=== PATIENT | female | born 1975 | race Caucasian/White ===

== ENCOUNTER 2024-06-16 18:00 | Emergency (ER) | payer BC, SELFPAY ==
[2024-06-16 18:01] VITALS: BP 137/103; PULSE 97; RESP 16; TEMP 36.6; O2SAT 100; BMI 21.1
--- NOTE | 2024-06-16 18:23 | EX.ED.UPPERE ---
HPI History of Present Illness Chief Complaint: Upper Extremity Injury Informant: patient Narrative Narrative: Patient is a 49-year-old female [id number] presenting with left hand injury. Patient states yesterday she was carrying the groceries and when the groceries hit the door to shot it but her left hand was still on the outside and got slammed in the door. This was an exterior door. She is complaining of pain, bruising and swelling of the lateral aspect of her left hand. No other injuries. Did not take anything for pain prior to arrival. No other complaints or concerns reported. Does not have insurance. Patient states she recently just got insurance and also moved here from [place]. PFSH PFSH Allergy/AdvReac Type Severity Reaction Status Date / Time No Known Allergies Allergy Verified 06/16/24 18:01 ROS ROS ED Constitutional Constitutional ED: Denies chills or fever(s) Musculoskeletal Musculoskeletal: Reports other Details: Left hand pain Integumentary Reports other Details: Bruising to the left hand Neurologic Neurologic: Denies paresthesias or weakness Hematologic/Lymphatic Hematologic/Lymphatic: Denies easy bleeding or easy bruising EXAM Physical Exam Const Vital Signs: 06/16/24 18:01 Temperature 97.9 F Temperature Source Temporal Pulse Rate 97 Respiratory Rate 16 Blood Pressure 137/103 H Blood Pressure Mean 114 Pulse Ox 100 Oxygen Delivery Method Room Air Positive well nourished and well developed General Appearance ED: well developed and NAD HEENT normocephalic Neck full ROM Chest Wall inspection of chest normal and palpation of chest normal Resp normal respiratory effort and clear to auscultation bilaterally Cardio regular rate and regular rhythm Cardio Narrative: 2+ radial pulses present. Extremity Extremity Narrative: No obvious deformity of the hand on the left but there is some soft tissue swelling. No tenderness over the wrist with normal range of motion. Normal range of motion of the fingers. No tenderness over the MCPs however patient does have tenderness over the fourth and fifth metacarpals. There is some associated bruising to the area. No tenting of the skin appreciated. Neuro oriented x3, moves all extremities and no focal motor deficits Psych mental status grossly normal Skin Lesions: no lesions Rashes: no rashes MDM MDM MDM Narrative Medical decision making narrative: Patient evaluated for left hand pain after injury yesterday. She states her hand was closed in her front door while bringing the groceries. Differential includes hand contusion, metacarpal fracture, metacarpal dislocation. X-ray obtained which reviewed by myself does show a minimally displaced left fifth metacarpal fracture at the midshaft. Patient placed in an ulnar gutter splint. Patient declined any opioid pain medication and does not want any medication in the ER as she will get billed for it. Patient instructed to take NSAIDs and Tylenol at home as needed for pain. Counseled on icing. Given return precautions. Given outpatient Ortho referral. Counseled on splint care as well. Case discussed with orthopedics, Dr. Lind who is agreeable with this plan. Radiography Diagnostic Testing: Diagnostic Data Hand X-Ray 06/16/24 18:24 IMPRESSION: Acute oblique fracture involving the mid shaft, 5th metacarpal. Reading Location: [facility] Procedures Upper Extremity Splints Upper Extremity Splint: Orthoglass and Ulnar gutter Splint Fabrication: Fabricated Location: Left Discharge Plan Triage Chief Complaint: Upper Extremity Injury ED Provider: Germaine Powell Dx/Rx/DC Orders Clinical Impression: Fracture of fifth metacarpal bone of left hand Instructions: ED Boxer Fracture Stand Alone Forms: ED Work / School Excuse Primary Care Provider: Care Physician,No Primary Referrals: [facility] [Provider Group] Sai Lind MD [Med Staff - Active Staff] - Activity Restrictions/Additional Instructions: Please follow-up with orthopedics. Alternate ibuprofen and Tylenol for pain. Elevate your hand and ice through the splint. Do not get the splint wet. Print Language: Croatian Disposition Disposition: Home, Self Care
--- NOTE | 2024-06-16 18:24 | RAD_ITS ---
PROCEDURE: HAND MIN 3 VIEWS REASON FOR EXAM: Shut hand in door. Pain 5th metacarpal. TECHNIQUE: 3 view(s) of the left hand COMPARISON: No relevant prior. FINDINGS: Oblique hairline undisplaced fracture through the mid shaft of the 5th metacarpal. No dislocations or subluxations. Mild soft tissue swelling RAD/Hand Min 3 Views IMPRESSION: Acute oblique fracture involving the mid shaft, 5th metacarpal. Reading Location: [facility]
[2024-06-16 19:19] VITALS: BP 137/103; PULSE 97; RESP 16; TEMP 36.6; O2SAT 100
== END 2024-06-16 19:22 | disposition home or self-care (01) ==
PROVIDERS: Emergency Provider Emergency Medicine; Visit Provider Emergency Medicine
DX: S62.327A Displaced fracture of shaft of fifth metacarpal bone, left hand, initial encounter for closed fracture (principal); W23.2XXA Caught, crushed, jammed or pinched between a moving and stationary object, initial encounter
CPT/HCPCS: 29125; 73130; 99282

== ENCOUNTER 2024-08-20 10:24 | Emergency (ER) | payer BC, SELFPAY ==
[2024-08-20 10:25] VITALS: BP 163/104; PULSE 105; RESP 16; TEMP 36.3; O2SAT 99; BMI 21.2
--- NOTE | 2024-08-20 10:34 | EX.ED.DYSGE1 ---
HPI History of Present Illness Chief Complaint: Rash Informant: patient Onset/Context/Timing Onset: Yesterday Context: Gradual Onset Timing: Continuous Quality: Redness, itching, aching Location: Right wrist and distal forearm Worsened by: Nothing Relieved by: Nothing Narrative Narrative: Patient presents with redness and itching to her right forearm that began yesterday. Patient is gradually getting worse. Patient admits to some redness and warmth over the volar aspect of her wrist and distal forearm. Patient states she went to the pharmacy to get some Benadryl cream and the pharmacist told her that it could be cellulitis. Patient denies any fevers or chills. Patient denies any discharge or drainage. Patient denies any paresthesias or weakness. Patient denies any new exposures. PFSH PFSH Home Medications ?Medication ?Instructions ?Recorded ?Last Taken ?Type cephalexin 500 mg capsule 500 mg PO Q6 #40 CAPSULES 08/20/24 Unknown Rx Allergy/AdvReac Type Severity Reaction Status Date / Time No Known Allergies Allergy Verified 08/20/24 10:25 Surgical History (Updated 08/20/24 @ 10:[address] Brooks Santos DO) S/P ORIF (open reduction internal fixation) fracture Hx of tubal ligation Social History (Updated 08/20/24 @ 10:[address] Brooks Santos DO) Smoking Status: Current every day smoker tobacco type: cigarettes ROS ROS ED Constitutional Constitutional ED: Denies chills or fever(s) Eyes Eyes: Denies blurry vision or change in vision ENT ENT ED: Denies rhinorrhea or sore throat Cardiovascular Cardiovascular: Denies chest pain or palpitations Respiratory/Chest Respiratory/Chest: Denies cough or dyspnea Gastrointestinal Gastrointestinal: Denies nausea or vomiting Genitourinary Genitourinary ED: Denies dysuria or hematuria Musculoskeletal Musculoskeletal: Denies back pain or neck pain Integumentary Reports rash; Denies abscess Neurologic Neurologic: Denies headache(s) or weakness Allergic/Immunologic Allergic/Immunologic ED: Denies mouth swelling or urticaria EXAM Physical Exam Const Vital Signs: 08/20/24 10:25 Temperature 97.4 F L Temperature Source Oral Pulse Rate 105 H Respiratory Rate 16 Blood Pressure 163/104 H Blood Pressure Mean 123 Pulse Ox 99 Oxygen Delivery Method Room Air Positive well nourished and well developed Constitutional Narrative: BMI is 21.3 General Appearance ED: well developed and NAD HEENT Reports moist mucous membranes Neck supple and no JVD Extremity Extremity Narrative: There is some erythema and warmth over the volar aspect of the right distal forearm and wrist area. There are no vesicles or pustules noted. There is no discharge or drainage. There is no fluctuance or induration. Radial pulses are equal bilaterally. Sensation was intact to light touch in the radial, median, and ulnar areas. Strength is 5/5 in the radial, median, and ulnar areas. Neuro oriented x3, CN's II-XII intact bilaterally and no sensory deficits noted Sensorium / Orientation: alert Motor Exam: strength 5/5 throughout Psych mental status grossly normal MDM MDM MDM Narrative Medical decision making narrative: Patient was advised that this could be a cellulitis. Patient was given a prescription for Keflex. Patient was given her first dose here. Patient was instructed to use Benadryl or hydrocortisone cream as needed for any itching. Patient was instructed to follow-up with her primary care physician in 5 to 7 days. Patient understood and was agreeable with the plan. All questions were answered. Discharge Plan Triage Chief Complaint: Rash ED Provider: Brooks Santos Dx/Rx/DC Orders Clinical Impression: Cellulitis of right forearm, Tobacco use Instructions: ED Cellulitis Prescriptions: New cephalexin 500 mg capsule 500 mg PO Q6 Qty: 40 0RF Primary Care Provider: Care Physician,No Primary Referrals: Kelin Ramirez MD [Med Staff - Block Machine Operator] - 5-7 Days Care Physician,No Primary [Primary Care Provider] - Print Language: Turkish Disposition Disposition: Home, Self Care
[2024-08-20] MEDS: Cephalexin 500 MG Capsule PO (10:43)
== END 2024-08-20 10:45 | disposition home or self-care (01) ==
LOC: ED 10:40
PROVIDERS: Emergency Provider Emergency Medicine; Visit Provider Emergency Medicine
DX: L03.113 Cellulitis of right upper limb (principal); F17.210 Nicotine dependence, cigarettes, uncomplicated
CPT/HCPCS: 99282

== ENCOUNTER 2024-09-21 05:37 | Emergency (ER) | payer BC, SELFPAY ==
[2024-09-21 05:38] VITALS: BP 141/91; PULSE 103; RESP 18; TEMP 36.5; O2SAT 100
--- NOTE | 2024-09-21 05:52 | EX.ED.DYSGE1 ---
HPI History of Present Illness Chief Complaint: Sore Throat Informant: patient Narrative Narrative: Patient is a 49-year-old female who reports no significant past medical history. She states over the last 24 hours she has noticed sore throat. She states that it is painful to swallow but she is able to do so. She denies any change in voice cough or congestion. She denies any known sick contact. However she is concerned she may have developed strep throat as the cause of her throat soreness and therefore comes in for evaluation PFS PFS no medical history Home Medications ?Medication ?Instructions ?Recorded ?Last Taken ?Type amoxicillin 875 mg-potassium 1 tab PO BID 10 days #20 tabs 09/21/24 Unknown Rx clavulanate 125 mg tablet prednisone 20 mg tablet 40 mg (2 x 20 mg) PO DAILY 5 days 09/21/24 Unknown Rx #10 tabs Allergy/AdvReac Type Severity Reaction Status Date / Time No Known Allergies Allergy Verified 09/21/24 05:38 Surgical History S/P ORIF (open reduction internal fixation) fracture Hx of tubal ligation Social History Smoking Status: Current every day smoker tobacco type: cigarettes and e-cigarettes ROS ROS ED Constitutional Constitutional ED: Denies chills or fever(s) Eyes Eyes: Denies change in vision ENT ENT ED: Reports sore throat; Denies rhinorrhea Cardiovascular Cardiovascular: Denies chest pain Respiratory/Chest Respiratory/Chest: Denies cough or dyspnea Gastrointestinal Gastrointestinal: Denies abdominal pain, diarrhea, nausea or vomiting Genitourinary Genitourinary ED: Denies dysuria Musculoskeletal Musculoskeletal: Reports neck pain; Denies myalgias Integumentary Denies rash Neurologic Neurologic: Denies headache(s) Hematologic/Lymphatic Hematologic/Lymphatic: Denies easy bleeding or easy bruising Allergic/Immunologic Allergic/Immunologic ED: Denies mouth swelling or tongue swelling EXAM Physical Exam Const Vital Signs: 09/21/24 05:38 09/21/24 05:59 Temperature 97.7 F L 97.7 F L Temperature Source Oral Pulse Rate 103 H 93 Respiratory Rate 18 18 Blood Pressure 141/91 H 120/98 H Blood Pressure Mean 107 105 Pulse Ox 100 100 Oxygen Delivery Method Room Air Positive well nourished and well developed General Appearance ED: well developed; Negative for pallor HEENT HEENT Narrative: No tongue or lip swelling noted Posterior pharynx displays diffuse erythema with scant exudates but no tonsillar hypertrophy or hard palate petechiae. No trismus change in voice or difficulty with secretions Eyes PERRL and EOMs intact bilaterally Neck supple Neck Narrative: Positive anterior cervical adenopathy which is tender to palpation Resp normal respiratory effort and clear to auscultation bilaterally Cardio regular rate and regular rhythm Extremity normal to inspection Neuro oriented x3, CN's II-XII intact bilaterally and no sensory deficits noted Sensorium / Orientation: alert Motor Exam: strength 5/5 throughout Psych mental status grossly normal Skin no rashes or lesions noted and no wounds General Skin Exam: Negative for jaundice or pallor MDM MDM MDM Narrative Medical decision making narrative: Patient presented to the ER hypertensive but otherwise afebrile with stable vital. She reported sore throat without URI symptoms such as congestion drainage or cough. A rapid strep swab was obtained secondary to concern for viral versus bacterial pharyngitis. By exam there are no findings to suggest peritonsillar abscess or retropharyngeal abscess or epiglottitis. And therefore I felt no need for imaging studies. Patient is 3 out of 4 positive on the [facility] criteria. Therefore at this time I will start her on antibiotics and steroids secondary to high likelihood for bacterial pharyngitis. As she does not have signs of systemic infection abscess or airway compromise there is no need for further intervention and she is otherwise safe for discharge History & Record Review Discussion w/independent historian: Patient Discharge Plan Triage Chief Complaint: Sore Throat ED Provider: Eddi Tony Dx/Rx/DC Orders Clinical Impression: Pharyngitis Instructions: ED Pharyngitis, Report Pending Prescriptions: New prednisone 20 mg tablet 40 mg PO DAILY 5 Days Qty: 10 0RF amoxicillin-pot clavulanate 875-125 mg tablet 1 tab PO BID 10 Days Qty: 20 0RF Stand Alone Forms: ED Work / School Excuse Primary Care Provider: Care Physician,No Primary Referrals: Aden Lou MD [Med Staff - Active Staff] - Care Physician,No Primary [Primary Care Provider] - Activity Restrictions/Additional Instructions: Your history and exam is concerning for developing strep pharyngitis. Secondary to this take the steroid to reduce inflammation in the antibiotic to resolve the infection. It will typically take 2 to 3 days for symptoms to improve. Return to the ER should you have any further concerns Print Language: Portuguese Disposition Disposition: Home, Self Care Discharge Date/Time: 09/21/24 06:00
[2024-09-21] MEDS: Amox/Clavulanate 875 MG Tablet PO (05:56)
[2024-09-21] MEDS: dexAMETHasone 10 MG/ML Vial PO.IVFORM (05:56)
[2024-09-21 05:59] VITALS: BP 120/98; PULSE 93; RESP 18; TEMP 36.5; O2SAT 100; BMI 22.4
== END 2024-09-21 06:00 | disposition home or self-care (01) ==
PROVIDERS: Emergency Provider Emergency Medicine; Visit Provider Emergency Medicine
DX: J02.9 Acute pharyngitis, unspecified (principal); F17.210 Nicotine dependence, cigarettes, uncomplicated; F17.290 Nicotine dependence, other tobacco product, uncomplicated
CPT/HCPCS: 87651; 99283